=== PATIENT | male | born 1980 | race Caucasian/White ===

== ENCOUNTER 2024-08-29 07:51 | Outpatient (CLI) | payer OTHER, SELFPAY ==
--- NOTE | 2024-08-29 09:26 | P.ANES_ITS ---
Anesthesia Charges Start Date/Time Anesthesia Start Date: 08/29/24 Anesthesia Start Time: 08:47 Stop Date/Time Anesthesia Stop Date: 08/29/24 Anesthesia Stop Time: 09:25 Coding CPT Codes CPT Codes: ABDI LWR INTST NDWV NOS - [id number] ([id number]) P1 - NORMAL HEALTHY PATIENT, QK - INSULATION AND FLOORING ASSEMBLER 2-4 CNCRNT ANES PROC, QX - AGENCY OWNER SVC W/ MED DIRECTION
--- NOTE | 2024-08-29 09:26 | W.ANESCHARGE ---
Anesthesia Charges Start Date/Time Anesthesia Start Date: 08/29/24 Anesthesia Start Time: 08:47 Stop Date/Time Anesthesia Stop Date: 08/29/24 Anesthesia Stop Time: 09:25 Coding CPT Codes CPT Codes: ABDI LWR INTST NDNV NOS - [id number] ([id number]) P1 - NORMAL HEALTHY PATIENT, QK - VETERANS' COUNSELOR 2-4 CNCRNT ANES PROC, QX - ACADEMIC SERVICES PROFESSIONAL SVC W/ MED DIRECTION
--- NOTE | 2024-08-29 09:55 | P.ANES_ITS ---
Anesthesia Charges Start Date/Time Anesthesia Start Date: 08/29/24 Anesthesia Start Time: 08:47 Stop Date/Time Anesthesia Stop Date: 08/29/24 Anesthesia Stop Time: 09:25 Coding CPT Codes CPT Codes: ABDI LWR INTST NDMA NOS - [id number] ([id number]) P1 - NORMAL HEALTHY PATIENT, QK - HEAD OF DATA 2-4 CNCRNT ANES PROC, QX - CLEANING PROFESSIONAL SVC W/ MED DIRECTION
--- NOTE | 2024-08-29 09:55 | W.ANESCHARGE ---
Anesthesia Charges Start Date/Time Anesthesia Start Date: 08/29/24 Anesthesia Start Time: 08:47 Stop Date/Time Anesthesia Stop Date: 08/29/24 Anesthesia Stop Time: 09:25 Coding CPT Codes CPT Codes: ABDI LWR INTST NDAL NOS - [id number] ([id number]) P1 - NORMAL HEALTHY PATIENT, QK - MIXER TENDER 2-4 CNCRNT ANES PROC, QX - CIGAR PACKER SVC W/ MED DIRECTION
== END 2024-08-29 07:52 | disposition home or self-care (01) ==
LOC: OP CLINIC 07:53
PROVIDERS: PCP Physician Assistant Medical; Visit Provider Surgery
DX: Z12.11 Encounter for screening for malignant neoplasm of colon (principal); Z83.718 Family history of other colon polyps; D12.8 Benign neoplasm of rectum
CPT/HCPCS: 00811; 00812; 45385; 88305; J2704